=== PATIENT | male | born 1960 | race Caucasian/White ===

== ENCOUNTER 2017-03-19 17:46 | Emergency (ER) | payer OTHER ==
[~2017-03-19] VITALS: Ht 182.9 cm; Wt 113.4 kg
[~2017-03-19 17:46] MED LIST: LABETALOL HCL100 M1 PO; LABETALOL HCL200 M1 PO
[2017-03-19 17:52] VITALS: BP 158/88
--- NOTE | 2017-03-19 18:32 | ED THROAT/DENTAL COMPLAINT ---
History of Present Illness General Chief Complaint: General Adult Stated Complaint: PT WANTS TO GET CHECK FORSTREP THROAT Source: patient Exam Limitations: no limitations Vital Signs & Intake/Output Vital Signs & Intake/Output Vital Signs Date Time Temp Pulse Resp B/P B/P Pulse O2 O2 Flow FiO2 Mean Ox Delivery Rate 03/19 1845 96 03/19 1752 98.5 66 15 158/88 97 Room Air Room Air Allergies Coded Allergies: No Known Allergies (03/19/17) Reconcile Medications Labetalol HCl 100 MG TABLET 1 TAB PO BID hypertension Labetalol HCl 200 MG TABLET 1 TAB PO BID HTN Labetalol HCl 100 MG TABLET 1 TAB PO BID HYPERTENSION Triage Note: PT TO ED FOR THROAT CULTURE FOR A SORE THROAT X 5 WEEKS. PER PT, "THE RIGHT TONSIL IS WORSE." AFEBRILE IN TRIAGE, BUT DOES FEEL WARM TO TOUCH. THROAT SWABS OBTAINED IN TRIAGE. Triage Nurses Notes Reviewed? yes Onset: Gradual Duration: constant Timing: recent history Severity: moderate Severity Numbers: 5 HPI: Patient is a 56-year-old male with a past medical history of hypertension who presents to emergency room with concerns of a 3-4 week history of intermittent sore throat. Patient states that in the morning sore throats more apparent however throughout the day it improves. Patient has nonproductive cough Denies any fever chills neck pain neck stiffness gum pain and dental pain SUBmandibular swelling Denies any weight loss and night sweats Past History Travel History Traveled to [place] past 21 day No Medical History Any Pertinent Medical History? see below for history Neurological: NONE EENT: NONE Cardiovascular: hypertension Respiratory: possible sleep apnea Gastrointestinal: NONE Hepatic: NONE Renal: NONE Musculoskeletal: NONE Psychiatric: NONE Endocrine: NONE Blood Disorders: NONE Cancer(s): NONE [employer]/Reproductive: NONE Surgical History Surgical History: non-contributory Psychosocial History What is your primary language Ug[place]an Tobacco Use: Quit >30 days ago ETOH Use: occasional use Illicit Drug Use: denies illicit drug use Family History Hx Contributory? No Review of Systems Review of Systems Constitutional: Reports: see HPI. EENTM: Reports: see HPI, throat pain. Respiratory: Reports: no symptoms. Cardiovascular: Reports: no symptoms. GI: Reports: no symptoms. Genitourinary: Reports: no symptoms. Musculoskeletal: Reports: no symptoms. Skin: Reports: no symptoms. Neurological/Psychological: Reports: no symptoms. Hematologic/Endocrine: Reports: no symptoms. Immunologic/Allergic: Reports: no symptoms. All Other Systems: Reviewed and Negative Physical Exam Physical Exam General Appearance: no apparent distress, alert, comfortable Mouth/Throat: normal mouth inspection Comments: Well-developed well-nourished person in no acute distress HEENT: extraocular motion intact, no nystagmus. Pupils equally round and reactive to light and accommodation. Nose is atraumatic. External auditory canal and Tympanic membranes clear. Pharynx noted to be erythematous no exudates no swelling Neck: Supple, anterior cervical lymphadenopathy, normal range of motion without pain or tenderness No submandibular swelling Back: Nontender, no CVA tenderness. Cardiovascular: Regular rate and rhythms no murmurs rubs or gallops, normal JVP Respiratory: Chest nontender. No respiratory distress.breath sounds clear to auscultation bilaterally Abdomen: Soft, nontender nondistended, no appreciable organomegaly. Normal bowel sounds. No ascites Extremity: No edema, no calf tenderness to palpation, normal and equal pulses. Neuro: Alert oriented x3, motor sensory normal, Skin: No appreciable rash on exposed skin, skin is warm and dry. Psych: Mood and affect is normal, memory and judgment is normal. Core Measures ACS in differential dx? No Severe Sepsis Present: No Septic Shock Present: No Progress Differential Diagnosis: epiglottitis, Ludwigs angina, meningitis, odontogenic abscess, diann-tonsillar abscess, pharyngeal for. body, stomatitis/gingivitis, strep pharyngitis, tooth fracture Plan of Care: Orders Procedure Date/time Status THROAT CULTURE W/QUICK STREP 03/19 1748 Active Negative strep, Patient will be treated for concerns of viral pharyngitis. No exudates Centor criteria was scored at 1 culture currently pending (AARTI MENDOSA,ULICES) Departure Departure Disposition: HOME OR SELF CARE Condition: Stable Clinical Impression Primary Impression: Pharyngitis Referrals: BERYL KRAFT,CHEVY Rodriguez (PCP/Family) Additional Instructions: As discussed begin the prescription of Medrol Dosepak and Magic mouthwash for your symptoms. Prescription is waiting at [facility]. If symptoms worsen return to emergency room. When YOU establish health insurance please follow-up with primary care doctor and follow up with ENT Dr. Chapa for further evaluation treatment Departure Forms: Customer Survey General Discharge Information
== END 2017-03-19 18:49 ==
LOC: ERH 17:46
DX: J02.9 Acute pharyngitis, unspecified (principal); Z87.891 Personal history of nicotine dependence